=== PATIENT | female | born 1990 | race Caucasian/White ===

== ENCOUNTER 2018-10-16 20:22 | Emergency (ER) | payer OTHER ==
[~2018-10-16] VITALS: Ht 172.7 cm; Wt 70.3 kg
[2018-10-16] MEDS ORDERED: IV NORMAL SALINE 1000 ML BAG IV ONE (21:15)
[2018-10-16] MEDS ORDERED: PROCHLORPERAZINE EDISYLATE 10 MG/2 ML VIAL IV ONE (21:15)
[2018-10-16] MEDS ORDERED: diphenhydrAMINE 50 MG/1 ML VIAL IV ONE (21:15)
--- NOTE | 2018-10-16 21:17 | NUR ---
Pt provided urine sample, sent to lab.
[2018-10-16] MEDS ORDERED: LORAZEPAM 2 MG/1 ML VIAL ONE (21:41)
[2018-10-16] MEDS ORDERED: diphenhydrAMINE 50 MG/1 ML VIAL ONE (21:42)
[2018-10-16] MEDS ORDERED: PROCHLORPERAZINE EDISYLATE 10 MG/2 ML VIAL ONE (21:42)
[2018-10-16] MEDS ORDERED: LORAZEPAM 2 MG/1 ML VIAL IV ONE (21:45)
[2018-10-16] MEDS ORDERED: HYDROMORPHONE 1 MG/1 ML DISP.SYRIN IV ONE (22:15)
[2018-10-16] MEDS ORDERED: ONDANSETRON IV *ER 4 MG/2 ML VIAL IV ONE (22:15)
[2018-10-16] MEDS ORDERED: HYDROMORPHONE 1 MG/1 ML DISP.SYRIN ONE (22:24)
[2018-10-16] MEDS ORDERED: ONDANSETRON 4 MG/2 ML VIAL ONE (22:24)
--- NOTE | 2018-10-16 23:37 | NUR ---
pt a.ox4 ambulating with good balance. h/a improved and 1/10 tolerable. pt advised no driving. advised rest. fu pmd in 2 days and return if symptoms increase change or persist
[2018-10-16 23:38] VITALS: BP 142/72
== END 2018-10-16 23:43 | disposition home or self-care (01) ==
LOC: ER 20:25
DX: G43.909 Migraine, unspecified, not intractable, without status migrainosus (principal); Z88.8 Allergy status to other drugs, medicaments and biological substances
CPT/HCPCS: 96361; 96374; 96375; 99283; J0780; J1170; J1200; J2060; J2405; A4663; J7030